=== PATIENT | female | born 2000 | race Caucasian/White ===

== ENCOUNTER 2023-12-07 15:52 | Outpatient (CLI) | payer BC ==
[2023-12-07 16:24] LABS: Hematocrit 39.2 % (34.9-44.5)
[2023-12-07 16:51] LABS: BHCG - Serum Negative (NEGATIVE); Pregs Control Background? CLEAR/WHITE (CLR/WHITE); Pregs Control Bar Appear? YES (CONTROL BAR)
== END 2023-12-07 15:53 | disposition home or self-care (01) ==
LOC: LABBT 15:52
PROVIDERS: ATTEND Otolaryngology Plastic Surgery within the Head & Neck
DX: Z01.812 Encounter for preprocedural laboratory examination (principal); J34.2 Deviated nasal septum; J34.3 Hypertrophy of nasal turbinates; J32.0 Chronic maxillary sinusitis; J32.1 Chronic frontal sinusitis; J32.2 Chronic ethmoidal sinusitis
CPT/HCPCS: 84703; 85014

== ENCOUNTER 2023-12-09 08:33 | Day surgery (SDC) | payer BC ==
[2023-12-07 16:12] VITALS: BMI 28.3
[2023-12-09] MEDS ORDERED: AFRIN NASAL MIST 15 ML BOT ONE ×2 (08:49→09:40)
[2023-12-09] MEDS ORDERED: fentaNYL PF 100 MCG/2 ML SYRINGE ONE (09:28)
[2023-12-09] MEDS ORDERED: PROPOFOL 20 ML ONE ×2 (09:29→09:30)
[2023-12-09] MEDS ORDERED: SUGAMMADEX SODIUM 200 MG/2 ML VIAL ONE (09:30)
[2023-12-09] MEDS ORDERED: Lidocaine 1% PF 5 ML VIAL ONE (09:32)
[2023-12-09] MEDS ORDERED: EPINEPHrine 1 MG/ML VIAL ONE (09:40)
[2023-12-09] MEDS ORDERED: Bacitracin Zinc Ointment 30 gm TUBE ONE (09:40)
[2023-12-09] MEDS ORDERED: Lidocaine 1% (PF) 30 ML VIAL ONE (09:40)
[2023-12-09] MEDS ORDERED: Rocuronium Bromide 10 MG/ML (10ML VIAL) ONE (10:11)
[2023-12-09] MEDS ORDERED: Dexamethasone 20 MG/5 ML VIAL ONE (10:13)
[2023-12-09] MEDS ORDERED: Meperidine HCl/PF 25 MG (1 mL) VIAL ONE (11:01)
[2023-12-09] MEDS ORDERED: Ondansetron PF 4 MG/2 ML Vial ONE (11:12)
[2023-12-09] MEDS ORDERED: fentaNYL 50 mcg/mL 1 mL Vial ONE ×2 (11:34→11:50)
[2023-12-09] MEDS ORDERED: HYDROcodone/Acetaminophen 5/325 mg Tablet ONE (13:44)
== END 2023-12-09 15:20 | disposition home or self-care (01) ==
LOC: SDC 08:33
PROVIDERS: ATTEND Otolaryngology Plastic Surgery within the Head & Neck
PROC: 09TL8ZZ Resection of Nasal Turbinate, Via Natural or Artificial Opening Endoscopic (ICD-10-PCS; principal; 2023-12-09)
PROC: 09BS8ZZ Excision of Right Frontal Sinus, Via Natural or Artificial Opening Endoscopic (ICD-10-PCS; principal; 2023-12-09)
PROC: 09SM4ZZ Reposition Nasal Septum, Percutaneous Endoscopic Approach (ICD-10-PCS; principal; 2023-12-09)
PROC: 09BU8ZZ Excision of Right Ethmoid Sinus, Via Natural or Artificial Opening Endoscopic (ICD-10-PCS; principal; 2023-12-09)
PROC: 09BV8ZZ Excision of Left Ethmoid Sinus, Via Natural or Artificial Opening Endoscopic (ICD-10-PCS; principal; 2023-12-09)
PROC: 09BT8ZZ Excision of Left Frontal Sinus, Via Natural or Artificial Opening Endoscopic (ICD-10-PCS; principal; 2023-12-09)
DX: J34.2 Deviated nasal septum (principal); J32.4 Chronic pansinusitis; J34.3 Hypertrophy of nasal turbinates; J34.89 Other specified disorders of nose and nasal sinuses
CPT/HCPCS: J0171; J1100; J2001; J2175; J2405; J2704; J3010